=== PATIENT | male | born 1995 | race Caucasian/White ===

== ENCOUNTER 2021-05-03 17:44 | Emergency (ER) | payer MEDICAID ==
[~2021-05-03] VITALS: Ht 177.8 cm; Wt 65.7 kg
[2021-05-03 17:48] VITALS: BP 117/74
--- NOTE | 2021-05-03 21:16 | NUR ---
Patient given discharge instructions and they have confirmed that they understand the instructions. Patient ambulatory with steady gait. NAD, all questions answered appropriately, denies additional needs at this time. No personal belongings left in room after discharge.
== END 2021-05-03 21:17 | disposition home or self-care (01) ==
LOC: ED 21:11
DX: S96.912A Strain of unspecified muscle and tendon at ankle and foot level, left foot, initial encounter (principal); M25.571 Pain in right ankle and joints of right foot; X58.XXXA Exposure to other specified factors, initial encounter; Y93.89 Activity, other specified; Y92.89 Other specified places as the place of occurrence of the external cause; Y99.8 Other external cause status
CPT/HCPCS: 99283

== ENCOUNTER 2021-05-04 00:33 | Emergency (ER) | payer MEDICAID ==
[~2021-05-04] VITALS: Ht 177.8 cm; Wt 65.0 kg
--- NOTE | 2021-05-04 00:33 | NUR ---
INITIAL PT CONTACT. PT PRESENTS TO ED VIA EMS C/O "I THINK I AM GOING TO HAVE OR AM HAVING A MENTAL BREAK. I HAVE A HISTORY OF SCHIZOPHRENIA." PT STATES HE WAS RELEASED FROM [facility] TODAY AND WAS FOUND AT THE [facility] THINKING IT WAS HIS HOME. DENIES HI/SI BUT CONTINUES TO REPEAT "I THINK I AM GOING TO HAVE A MENTAL BREAKDOWN." PT STATES HE HAS NOT HAD ANY ETOH OR DRUGS IN 3 DAYS, SINCE GOING TO [facility]. PT TO BATHROOM UPON ARRIVAL, URINE SAMPLE PROVIDED. PT CHANGED INTO GOWN, ALL BELONGINGS PLACED IN BAG (X1 BAG) AND SECURED IN APPROPRIATE LOCKER. SAFETY PRECAUTIONS IN PLACE, SAFETY CRAWFORD DOWN AND SITTER WITHIN VIEW. PT PROVIDED WARM BLANKETS. NO ADDITIONAL NEEDS AT THIS TIME. AWAITING ERP.
[2021-05-04 00:46] VITALS: BP 106/86
--- NOTE | 2021-05-04 01:06 | NUR ---
Report from Kari AGLE
--- NOTE | 2021-05-04 01:08 | NUR ---
BEDSIDE REPORT TO DENNIS GALE
[2021-05-04 01:29] LABS: BASOPHILS % (AUTO) 1 % (0-1); EOSINOPHILS % (AUTO) 2 % (1-7); LYMPHOCYTES % (AUTO) 27 % (22-44); MEAN CORPUSCULAR HEMOGLOBIN 32.1 pg (27.5-34.5); MEAN CORPUSCULAR HGB CONC 33.4 g/dL (33.2-36.2); MEAN PLATELET VOLUME 8.7 fL (7.4-10.4); MONOCYTES % (AUTO) 9 % (2-9); NEUTROPHILS % (AUTO) 62 % (42-75); PLATELET COUNT 228 x10^3/uL (130-400); RED CELL DISTRIBUTION WIDTH 13.1 % (9.4-14.8)
[2021-05-04 01:31] LABS: ALBUMIN 3.3 g/dL (3.4-5.0); ANION GAP 6 mmol/L (5-15); CALCIUM 8.8 mg/dL (8.5-10.1); CHLORIDE 110 mmol/L (98-107)
[2021-05-04 01:36] LABS: ALANINE AMINOTRANSFERASE 22 U/L (12-78); ALKALINE PHOSPHATASE 70 U/L (45-117); BILIRUBIN,TOTAL 0.4 mg/dL (0.2-1.0); CREATININE 0.74 mg/dL (0.7-1.3); SALICYLATE LEVEL 3.2 mg/dL (2.8-20.0); TOTAL PROTEIN 6.4 g/dL (6.4-8.2)
--- NOTE | 2021-05-04 01:38 | NUR ---
TELE PSYCH ROBOT SET UP IN PT ROOM. PT WOKEN UP TO INFORM OF PLAN.
[2021-05-04 01:39] LABS: AMPHETAMINE SCREEN, URINE Negative (Negative); BARBITURATE SCREEN, URINE Negative (Negative); BENZODIAZEPINE SCREEN, URINE Negative (Negative); CANNABINOID SCREEN, URINE Negative (Negative); COCAINE SCREEN, URINE Negative (Negative); METHADONE SCREEN, URINE Negative (Negative); OPIATE SCREEN, URINE Negative (Negative)
--- NOTE | 2021-05-04 03:12 | NUR ---
Pt resting comfortably, appears to be sleeping. Respirations even and unlabored.
--- NOTE | 2021-05-04 04:29 | NUR ---
PT UP FOR DC. PT GIVEN BELONGINGS BACK AND PT REQUESTING SNACKS.
== END 2021-05-04 04:33 | disposition home or self-care (01) ==
LOC: ED 00:45
DX: F43.22 Adjustment disorder with anxiety (principal); Z72.9 Problem related to lifestyle, unspecified
CPT/HCPCS: 36415; 80053; 80299; 80307; 80320; 80329; 85025; 99283; G0480